=== PATIENT | male | born 1985 | race Caucasian/White ===

== ENCOUNTER → 2016-08-03 | Outpatient (CLI) | payer MEDICARE, OTHER ==
[~2016-08-03] MED LIST: ESLI1TAB2 PO; OMEP20TA PO; ONFI20TA PO; OXCA300T PO; PRIL20CA PO; ZYPR2.5T2 PO; ZYPR5TAB PO; [UNRECOGNIZED DRUG - CODE] PO
[2016-08-03 16:45] LABS: HEMATOCRIT 36.5 % (39.0-51.0); MEAN CELL VOLUME 89.9 FL (80.0-100.0); MEAN CORPUSCULAR HEMOGLOBIN 31.6 PG (27.0-34.0); MEAN CORPUSCULAR HGB CONC 35.2 % (32.0-36.0); PLATELET COUNT 248 TH/MM3 (150-450); RED BLOOD COUNT 4.06 MIL/MM3 (4.50-5.90); RED CELL DISTRIBUTION WIDTH 13.1 % (11.6-17.2); REVIEW FLAG FINAL; WHITE BLOOD COUNT 8.5 TH/MM3 (4.0-11.0)
[2016-08-03 16:54] LABS: INDIRECT BILIRUBIN 0.1 MG/DL (0.0-0.8); TOTAL BILIRUBIN ADULT 0.2 MG/DL (0.2-1.0)
== END ==
LOC: PLAB 13:31
PROVIDERS: ATTEND Specialist
DX: Z51.81 Encounter for therapeutic drug level monitoring (principal); R93.3 Abnormal findings on diagnostic imaging of other parts of digestive tract; R94.5 Abnormal results of liver function studies; Z79.899 Other long term (current) drug therapy
CPT/HCPCS: 36415; 80076; 80183; 85027

== ENCOUNTER 2016-12-20 21:32 | Inpatient (IN) | payer MEDICARE, OTHER ==
[~2016-12-20] VITALS: Ht 172.7 cm; Wt 67.7 kg
[~2016-12-20 21:32] MED LIST changes: -OMEP20TA PO; -ONFI20TA PO; -OXCA300T PO; -ZYPR2.5T2 PO
[2016-12-20 21:33] VITALS: BP 141/86; PULSE 134; RESP 20; TEMP 97.6; O2SAT 99
[2016-12-20 21:42] VITALS: TEMP 102.3
[2016-12-20 22:05] VITALS: TEMP 102.2
[2016-12-20] MEDS ORDERED: SODIUM CHLOR 0.9% 1000 ML INJ 1,000 ML IV ONE (22:11)
[2016-12-20] MEDS ORDERED: ACETAMINOPHEN 650 MG SUPP RECTAL ONE (22:15)
--- NOTE | 2016-12-20 22:22 | PD ---
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 The event occurred about 40 minutes prior to arrival and consisted of generalized shaking and the patient not acting like himself. Upon arrival to the emergency department the patient was notably febrile with a rectal temp of 102F. Mom states that the patient had similar presentation several years ago when he needed a BALLPOINT PENS ASSEMBLER shunt revision. He also had a similar presentation a couple years ago when he aspirated. They have not noticed a rash. He has not had a cough. No vomiting or diarrhea. Patient is nonverbal at baseline and is unable to provide any history. PFSH Past Medical History Hx Anticoagulant Therapy: No Autoimmune Disease: No Blood Disorders: No Heart Rhythm Problems: No Cancer: No Cardiovascular Problems: No Chemotherapy: No Diabetes: No Diminished Hearing: No Endocrine: No Gastrointestinal Disorders: Yes (reflux hx of esophageal bleeding) GERD: Yes Glaucoma: No Genitourinary: Yes (hx of small kidney stone incontinent of urine) Hepatitis: No Hiatal Hernia: No Hypertension: No Immune Disorder: No Musculoskeletal: Yes (wheelchair bound non weight bearing) Neurologic: Yes (seizures hx of vp patient shunt) Psychiatric: Yes (pt is mentally challenged) Reproductive: No Respiratory: No Immunizations Current: Yes Radiation Therapy: No Seizures: Yes Thyroid Disease: No PNEUMOCCOCAL Vaccine (Year): 2009 Past Surgical History Abdominal Surgery: No Body Medical Devices: vagal nerve stimulator vp patient shunt Cardiac Surgery: No Ear Surgery: No Endocrine Surgery: No Eye Surgery: No Genitourinary Surgery: No Gynecologic Surgery: No Neurologic Surgery: Yes (vp patient shunt ) Oral Surgery: No Pacemaker: No Thoracic Surgery: No Other Surgery: Yes (VAGAL NERVE STIMULATOR) Social History Alcohol Use: No Tobacco Use: No Substance Use: No Allergies-Medications (Allergen,Severity, Reaction): Coded Allergies: Cashew (Verified Allergy, Severe, SWELLING, 01/28/16) Keflex (Verified Allergy, Unknown, 12/20/16) Uncoded Allergies: LIVE OAK (Allergy, Severe, hives rash, 12/13/13) MOLD (Allergy, Mild, conjestion, 12/13/13) Reported Meds & Prescriptions Reported Meds & Active Scripts Active Reported Zyprexa (Olanzapine) 2.5 Mg Tab 2.5 Mg PO BID PRN Onfi (Clobazam) 20 Mg Tab 20 Mg PO TID Omeprazole 20 Mg Tab 20 Mg PO DAILY Oxcarbazepine 300 Mg Tab 300 Mg PO TID Review of Systems ROS Limitations: Other: (Baseline mental status) Physical Exam Narrative GENERAL: Well-developed, well-nourished, awake, alert SKIN: Focused skin assessment warm/dry. No rash. HEAD: Several scalp depressions and old surgical scars. Right parietal scalp BALLPOINT PENS ASSEMBLER shunt with port depressible. EYES: Pupils equal and round. No scleral icterus. No injection or drainage. ENT: Mucous membranes pink and dry. NECK: Trachea midline. No JVD. No nuchal rigidity. CARDIOVASCULAR: Regular rate and rhythm. RESPIRATORY: No accessory muscle use. Clear to auscultation. Breath sounds equal bilaterally. GASTROINTESTINAL: Abdomen soft, non-tender, nondistended. MUSCULOSKELETAL: Upper and lower extremity contractures. No clubbing. No cyanosis. No edema. NEUROLOGICAL: Awake and alert. No obvious cranial nerve deficits. Moves all extremities. Data Data Last Documented VS Vital Signs Date Time Temp Pulse Resp B/P Pulse Ox O2 Delivery O2 Flow Rate FiO2 12/21/16 00:26 106 18 132/82 97 Room Air 12/20/16 21:42 102.3 Orders Complete Blood Count With Diff (12/20/16 22:11) Comprehensive Metabolic Panel (12/20/16 22:11) Prothrombin Time / Inr (Pt) (12/20/16 22:11) Act Partial Throm Time (Ptt) (12/20/16 22:11) Lactic Acid Sepsis Protocol (12/20/16 22:11) Urinalysis - C+S If Indicated (12/20/16 22:11) Blood Culture (12/20/16 22:11) Ecg Monitoring (12/20/16 22:11) Iv Access Insert/Monitor (12/20/16 22:11) Cath For Specimen (12/20/16 22:11) Oximetry (12/20/16 22:11) Acetaminophen Supp (Tylenol Supp) (12/20/16 22:15) Sodium Chlor 0.9% 1000 Ml Inj (Ns 1000 M (12/20/16 22:11) Influenzae A/B Antigen (12/20/16 22:11) Group A Rapid Strep Screen (12/20/16 22:11) Shunt Series (12/20/16 ) Ct Brain W/O Iv Contrast(Rout) (12/20/16 ) Levofloxacin 500 Mg Premix Inj (Levaquin (12/21/16 00:15) Sodium Chlor 0.9% 1000 Ml Inj (Ns 1000 M (12/21/16 00:15) Fluconazole (Diflucan) (12/21/16 00:30) Strep Culture (Group A) (12/20/16 23:40) Labs Laboratory Tests Test 12/20/16 12/20/16 12/21/16 22:35 23:40 00:04 White Blood Count 12.3 TH/MM3 Red Blood Count 4.30 MIL/MM3 Hemoglobin 13.8 GM/DL Hematocrit 38.8 % Mean Corpuscular Volume 90.3 FL Mean Corpuscular Hemoglobin 32.0 PG Mean Corpuscular Hemoglobin 35.5 % Concent Red Cell Distribution Width 13.1 % Platelet Count 217 TH/MM3 Mean Platelet Volume 7.4 FL Neutrophils (%) (Auto) 89.0 % Lymphocytes (%) (Auto) 4.7 % Monocytes (%) (Auto) 5.8 % Eosinophils (%) (Auto) 0.2 % Basophils (%) (Auto) 0.3 % Neutrophils # (Auto) 11.0 TH/MM3 Lymphocytes # (Auto) 0.6 TH/MM3 Monocytes # (Auto) 0.7 TH/MM3 Eosinophils # (Auto) 0.0 TH/MM3 Basophils # (Auto) 0.0 TH/MM3 CBC Comment AUTO DIFF Differential Total Cells 100 Counted Neutrophils % (Manual) 74 % Band Neutrophils % 14 % Lymphocytes % 10 % Monocytes % 2 % Neutrophils # (Manual) 10.8 TH/MM3 Differential Comment FINAL DIFF MANUAL Atypical Lymphocytes % Platelet Estimate NORMAL Platelet Morphology Comment NORMAL Red Cell Morphology Comment NORMAL Sodium Level 127 MEQ/L Potassium Level 4.3 MEQ/L Chloride Level 92 MEQ/L Carbon Dioxide Level 31.6 MEQ/L Anion Gap 3 MEQ/L Blood Urea Nitrogen 8 MG/DL Creatinine 0.75 MG/DL Estimat Glomerular Filtration 120 ML/MIN Rate Random Glucose 112 MG/DL Calcium Level 8.9 MG/DL Total Bilirubin 0.3 MG/DL Aspartate Amino Transf 29 U/L (AST/SGOT) Alanine Aminotransferase 50 U/L (ALT/SGPT) Alkaline Phosphatase 97 U/L Total Protein 7.7 GM/DL Albumin 4.1 GM/DL Lactic Acid Level 2.8 mmol/L Urine Color YELLOW Urine Turbidity HAZY Urine pH 8.0 Urine Specific [place] 1.011 Urine Protein NEG mg/dL Urine Glucose (UA) NEG mg/dL Urine Ketones NEG mg/dL Urine Occult Blood NEG Urine Nitrite NEG Urine Bilirubin NEG Urine Urobilinogen LESS THAN 2.0 MG/DL Urine Leukocyte Esterase NEG Urine RBC 1 /hpf Urine WBC 2 /hpf Urine Mucus FEW /lpf Urine Yeast (Budding) MANY Microscopic Urinalysis Comment CULT NOT INDICATED Prothrombin Time 11.5 SEC Prothromb Time International 1.0 RATIO Ratio Activated Partial 28.5 SEC Thromboplast Time MDM Medical Decision Making Medical Screen Exam Complete: Yes Emergency Medical Condition: Yes Differential Diagnosis Sepsis, pneumonia, UTI, meningitis/encephalitis less likely, viral illness, URI, Narrative Course While at x-ray the patient had a brief generalized seizure. Initial vital signs show heart rate 134, temporal artery temp of 102.3F, blood pressure 141/86, pulse ox 99% on room air. CBC shows WBC 12.3, hemoglobin 13.8, hematocrit 38.8, platelets 217, neutrophils 89%, then neutrophils 14%. CMP is unremarkable. Lactic acid is 2.8. Influenza is negative. Group A strep is negative. UA shows few mucus, many yeast, negative nitrites, negative leukocyte esterase, not suggestive of UTI. The patient was given a dose of Diflucan. Shunt series: Intact shunt on the right side. CT head: CONCLUSION: Air-fluid level right maxillary sinus could represent sinusitis. Pachygyri frontal lobes bilaterally. No evidence of intracranial hemorrhage or edema. Ventricles remain nondilated. Patient meets sepsis criteria with elevated WBC count, sinus tachycardia, fever 102.4F. He was given Tylenol and normal saline bolus IV. Likely source is sinusitis. He is allergic to Keflex and possibly penicillin, therefore he was given a dose of IV Levaquin. He has had 2 brief seizures/seizure-like activity while in the emergency department, both of which resolved on their own. Patient does have history of seizures and is on Onfi and Trileptal. Seizure threshold is likely lowered because of current infection. Patient be admitted for further treatment and evaluation of sepsis, sinusitis. Parents informed of all findings and a plan for admission. Case discussed with hospitalist Dr. Hemphill who will admit the patient to his service. Diagnosis Primary Impression: Sepsis Qualified Code: A41.9 - Sepsis, due to unspecified organism Additional Impression: Sinusitis Qualified Code: J01.00 - Acute maxillary sinusitis, recurrence not specified Admitting Information Admitting Physician Requests: Admit Wolfgang Espitia MD Dec 20, 2016 22:22
[2016-12-20 22:55] LABS: BASOPHIL % 0.3 % (0.0-2.0); EOSINOPHIL % 0.2 % (0.0-4.0); HEMATOCRIT 38.8 % (39.0-51.0); LYMPH % 4.7 % (9.0-44.0); LYMPHOCYTE # 0.6 TH/MM3 (1.0-4.8); MEAN CELL VOLUME 90.3 FL (80.0-100.0); MEAN CORPUSCULAR HGB CONC 35.5 % (32.0-36.0); MONO % 5.8 % (0.0-8.0); PLATELET COUNT 217 TH/MM3 (150-450); RED CELL DISTRIBUTION WIDTH 13.1 % (11.6-17.2); WHITE BLOOD COUNT 12.3 TH/MM3 (4.0-11.0)
[2016-12-20 22:56] LABS: HEMO FLAGS AUTO DIFF
[2016-12-20] MEDS ORDERED: ZYPR2.5T2 PO (22:59)
[2016-12-20] MEDS ORDERED: OXCA300T PO (22:59)
[2016-12-20] MEDS ORDERED: OMEP20TA PO (22:59)
[2016-12-20] MEDS ORDERED: ONFI20TA PO (22:59)
[2016-12-20 23:09] LABS: ALT (GPT) 50 U/L (12-78); ANION GAP 3 MEQ/L (5-15); AST (GOT) 29 U/L (15-37); BICARBONATE 31.6 MEQ/L (21.0-32.0); BLOOD UREA NITROGEN 8 MG/DL (7-18); CHLORIDE 92 MEQ/L (98-107); GLOMERULAR FILTRATION RATE 120 ML/MIN (>89); POTASSIUM 4.3 MEQ/L (3.5-5.1); SODIUM (NA) 127 MEQ/L (136-145)
[2016-12-20 23:11] LABS: ALKALINE PHOSPHATASE 97 U/L (45-117); TOTAL BILIRUBIN ADULT 0.3 MG/DL (0.2-1.0)
[2016-12-20 23:21] LABS: BANDS 14 % (0-6); NEUTROPHIL # MANUAL DIFF 10.8 TH/MM3 (1.8-7.7); POLYS (SEG NEUTROPHILS) 74 % (16-70); WBC DIFF SAMPLE 100
[2016-12-20 23:22] LABS: PLATELET ESTIMATE SMEAR NORMAL (NORMAL); PLATELET MORPHOLOGY NORMAL (NORMAL); SCAN/DIFF FINAL DIFF MANUAL
--- NOTE | 2016-12-20 23:24 | RADRPT ---
EXAM DATE/TIME: 12/20/2016 22:49 [facility] COMPARISON: No previous studies available for comparison. INDICATIONS : Headache. MEDICAL HISTORY : Renal calculi. non-verbal SURGICAL HISTORY : None. ENCOUNTER: Initial ACUITY: 1 day PAIN SCORE: Non-responsive. LOCATION: shunt series. FINDINGS: Radiograph of the skull, neck, chest and abdomen performed to evaluate shunt patency. The right shun t catheter is seen entering the right frontal region with its tip in the region of the body of the la teral ventricle. The catheter is continuous in its course terminating in the abdomen. No catheter disruption is ident ified. The visualized heart, lungs and abdominal structures are intact. There is an older left shunt with an interruption in the mid neck CONCLUSION: Intact shunt on the right side. Gonzalez Tao MD on December 20, 2016 at 23:20 Board Certified Radiologist. This report was verified electronically.
--- NOTE | 2016-12-20 23:52 | RADRPT ---
EXAM DATE/TIME: 12/20/2016 23:03 [facility] COMPARISON: CT BRAIN W/O CONTRAST, July 11, 2015, 16:05. INDICATIONS : Altered mental status. RADIATION DOSE: 46.29 CTDIvol (mGy) MEDICAL HISTORY : Gastroesophageal reflux disease. Seizures. Renal calculi.Osteochondroma. Liscencephaly. SURGICAL HISTORY : HAND OUTSIDE CUTTER Shunt. ENCOUNTER: Initial ACUITY: 1 day PAIN SCALE: 10/10 LOCATION: Bilateral cranial TECHNIQUE: Multiple contiguous axial images were obtained of the head. Using automated exposure control and adj ustment of the mA and/or kV according to patient size, radiation dose was kept as low as reasonably a chievable to obtain optimal diagnostic quality images. 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 No evidence of midline shift, mass lesion, hemor rhage or acute infarction. No extra-axial fluid collections are seen. Right frontal catheter is unch anged. POSTERIOR FOSSA: The cerebellum and brainstem are intact. The 4th ventricle is midline. The cerebellopontine angle i s unremarkable. EXTRACRANIAL: The visualized portion of the orbits is intact. Air-fluid level right maxillary sinus. SKULL: The calvaria is intact. Bony defect in the left frontal region. CONCLUSION: Air-fluid level right maxillary sinus could represent sinusitis. Pachygyri frontal lobes bilaterally . No evidence of intracranial hemorrhage or edema. Ventricles remain nondilated. Gonzalez Tao MD on December 20, 2016 at 23:48 Board Certified Radiologist. This report was verified electronically.
[2016-12-21] VITALS (7 sets, daily range): BP systolic 91–132; BP diastolic 50–82; PULSE 73–106; RESP 16–20; TEMP 97.6–98.5; O2SAT 96–99
[2016-12-21 00:13] LABS: BLOOD, URINE NEG (NEG); GLUCOSE,URINE NEG (NEG); KETONE, URINE NEG (NEG); MUCUS URINE FEW /lpf (OCC); NITRITE,URINE NEG (NEG); URINE COLOR YELLOW (YELLW/STRAW)
[2016-12-21 00:14] LABS: COMMENT (UR) CULT NOT INDICATED; CULTURE IF INDICATED CULT NOT INDICATED
[2016-12-21] MEDS ORDERED: LEVOFLOXACIN 500 MG PREMIX INJ 100 ML IV ONE (00:15)
[2016-12-21] MEDS ORDERED: SODIUM CHLOR 0.9% 1000 ML INJ 1,000 ML IV ONE (00:15)
[2016-12-21 00:26] LABS: APTT (PATIENT) 28.5 SEC (24.3-30.1); PROTHROMBIN TIME - PATIENT 11.5 SEC (9.8-11.6)
[2016-12-21] MEDS ORDERED: FLUCONAZOLE 100 MG TAB PO ONE (00:30)
[2016-12-21 00:44] LABS: LACTIC ACID GHOST NOT REPORTABLE
[2016-12-21] MEDS ORDERED: ONDANSETRON HCL 4 MG/2 ML VIAL IVP PRN (02:45)
[2016-12-21] MEDS ORDERED: NALOXONE HCL 0.4 MG/ML AMP IV PRN (02:45)
[2016-12-21] MEDS ORDERED: ACETAMINOPHEN 325 MG TAB PO PRN (02:45)
[2016-12-21] MEDS ORDERED: MAGNESIUM HYDROXIDE SUSP 30 ML CUP PO PRN (02:45)
[2016-12-21] MEDS: HEPARIN SODIUM - SQ 10,000 UNITS/ML VIAL SQ SCH ×3 (05:06→20:54)
[2016-12-21] MEDS: DOCUSATE SODIUM 50 MG/SENNA 8.6 MG TAB PO SCH ×2 (09:41→20:54)
--- NOTE | 2016-12-21 10:56 | HHI.HP ---
[facility] Nahum Berrios MD Admission Diagnosis sepsis, sinusitis Diagnoses: Travel History International Travel<30 Days: No Contact w/Intl Traveler <30 Da: No Traveled to Known Affected Are: No Sepsis Criteria SIRS Criteria (2 or more): Temp > 100.9 or < 96.8, Heart rate over 90, WBC > 55214, < 4000 or > 10% bands Sepsis Criteria (SIRS+source): Infect source susp/known History of Present Illness 31 year old male w PMHx of epilepsy, DRIVING TEACHER shunt placement, GERD, nephrolithiasis, presented to the ER last night w family because of seizure like activity. Patient is nonverbal and therefore mother and father give history. Mother states that around 8:30 last night, patient started shaking and she thought he had a seizure. He had a second episode where the whole wheelchair was shaking and patient's eyes were moving [id number]. Afterwards, patient became lethargic. Mother denies any fevers at home. Prior to 8:30 patient was acting his normal self. Patient's appetite has been the same with no changes. Per mother, patient was not complaining of any pain and she states that he has a high tolerance for pain. Her mother thought that maybe he had aspirated because he had some labored breathing during the episodes where he was shaking. She denies him choking on his food. She admits to some clear drainage in his nostrils yesterday 1 episode. She did also note bad breath yesterday which is new for him as she does clean his teeth regularly. Other denies any fevers at home. Mother was concerned about the shunt. Denies any cough Review of Systems ROS Limitations: Clinical Condition, Speech Impaired, Other Except as stated in HPI: all other systems reviewed are Neg Past Family Social History Past Medical History epilepsy, DRIVING TEACHER shunt placement, GERD, nephrolithiasis Past Surgical History DRIVING TEACHER shunt placed at 5 months of age. It disintegrated around age 19 and had a new one placed. Patient did have a history of shunt infection in the past. Osteochondroma removal on the right leg, esophageal dilatation, hamstring release bilaterally, vagal nerve stimulator on the left side. Reported Medications Reported Meds & Active Scripts Active Reported Zyprexa (Olanzapine) 2.5 Mg Tab 2.5 Mg PO BID PRN Onfi (Clobazam) 20 Mg Tab 20 Mg PO TID Omeprazole 20 Mg Tab 20 Mg PO DAILY Oxcarbazepine 300 Mg Tab 300 Mg PO TID Allergies: Coded Allergies: Cashew (Verified Allergy, Severe, SWELLING, 01/28/16) Keflex (Verified Allergy, Unknown, 12/20/16) Uncoded Allergies: LIVE OAK (Allergy, Severe, hives rash, 12/13/13) MOLD (Allergy, Mild, conjestion, 12/13/13) Family History Mother has high blood pressure Father has high blood pressure, heart disease, diabetes Brother's grandson of brain cancer age 9 Social History And no smoking history, alcohol intake, or illegal drug use. Physical Exam Vital Signs Vital Signs Date Time Temp Pulse Resp B/P Pulse Ox O2 Delivery O2 Flow Rate FiO2 12/21/16 08:00 97.7 76 20 91/50 97 12/21/16 04:38 94 12/21/16 04:00 98.3 92 16 96/62 96 12/21/16 00:26 106 18 132/82 97 Room Air 12/20/16 22:05 102.2 12/20/16 21:42 102.3 12/20/16 21:33 97.6 134 20 141/86 99 Room Air Physical Exam GENERAL: This is a well-nourished, well-developed patient, in no apparent distress. SKIN: No rashes, ecchymoses or lesions. Cool and dry. HEAD: Atraumatic. Normocephalic. EYES: Pupils equal round and reactive. Extraocular motions intact. No scleral icterus. No injection or drainage. ENT: Nose without drainage. Throat exams was somewhat limited due to patient's condition however mother did help me with it and I did not note any erythema or enlarged tonsils or exudates. Airway patent. I did not seems to elicit and pain w palpation of the frontal and maxillary sinuses, Ears examined and wax noted but tympanic membrane pearly bills w no erythema, didn't note any fluid NECK: Trachea midline. No JVD or lymphadenopathy. Supple, nontender, no meningeal signs. CARDIOVASCULAR: Regular rate and rhythm without murmurs. RESPIRATORY: Clear to auscultation. Breath sounds equal bilaterally. No wheezes GASTROINTESTINAL: Abdomen soft, non-tender, nondistended. No palpable masses. No guarding. MUSCULOSKELETAL: Extremities without edema. Contractures noted in the upper extremities. Minimal movement in the lower extremities noted. Pedal pulses palpated NEUROLOGICAL: Awake and alert. Nonverbal Laboratory Laboratory Tests Test 12/20/16 12/20/16 12/21/16 12/21/16 22:35 23:40 00:04 01:20 White Blood Count 12.3 Red Blood Count 4.30 Hemoglobin 13.8 Hematocrit 38.8 Mean Corpuscular Volume 90.3 Mean Corpuscular Hemoglobin 32.0 Mean Corpuscular Hemoglobin 35.5 Concent Red Cell Distribution Width 13.1 Platelet Count 217 Mean Platelet Volume 7.4 Neutrophils (%) (Auto) 89.0 Lymphocytes (%) (Auto) 4.7 Monocytes (%) (Auto) 5.8 Eosinophils (%) (Auto) 0.2 Basophils (%) (Auto) 0.3 Neutrophils # (Auto) 11.0 Lymphocytes # (Auto) 0.6 Monocytes # (Auto) 0.7 Eosinophils # (Auto) 0.0 Basophils # (Auto) 0.0 CBC Comment AUTO DIFF Differential Total Cells 100 Counted Neutrophils % (Manual) 74 Band Neutrophils % 14 Lymphocytes % 10 Monocytes % 2 Neutrophils # (Manual) 10.8 Differential Comment FINAL DIFF MANUAL Atypical Lymphocytes Platelet Estimate NORMAL Platelet Morphology Comment NORMAL Red Cell Morphology Comment NORMAL Sodium Level 127 Potassium Level 4.3 Chloride Level 92 Carbon Dioxide Level 31.6 Anion Gap 3 Blood Urea Nitrogen 8 Creatinine 0.75 Estimat Glomerular Filtration 120 Rate Random Glucose 112 Calcium Level 8.9 Total Bilirubin 0.3 Aspartate Amino Transf 29 (AST/SGOT) Alanine Aminotransferase 50 (ALT/SGPT) Alkaline Phosphatase 97 Total Protein 7.7 Albumin 4.1 Lactic Acid Level 2.8 1.6 Urine Color YELLOW Urine Turbidity HAZY Urine pH 8.0 Urine Specific [place] 1.011 Urine Protein NEG Urine Glucose (UA) NEG Urine Ketones NEG Urine Occult Blood NEG Urine Nitrite NEG Urine Bilirubin NEG Urine Urobilinogen LESS THAN 2.0 Urine Leukocyte Esterase NEG Urine RBC 1 Urine WBC 2 Urine Mucus FEW Urine Yeast (Budding) MANY Microscopic Urinalysis Comment CULT NOT INDICATED Prothrombin Time 11.5 Prothromb Time International 1.0 Ratio Activated Partial 28.5 Thromboplast Time Date/Time Procedure Status Source Growth 12/20/16 23:40 Influenza Types A,B Antigen ([facility]) - Final Complete Nasal Washing NEGATIVE FOR FLU A AND B ANTIGEN.... 12/20/16 23:40 Group A Streptococcus Screen ([facility]) - Final Complete Throat 12/20/16 23:40 Group A Streptococcus Screen Received Throat Pending 12/20/16 22:35 Aerobic Blood Culture Received Blood Peripheral Pending 12/20/16 22:35 Anaerobic Blood Culture Received Blood Peripheral Pending Result Diagram: 12/20/16223412/20/162234 Imaging Last Impressions Shunt Study (Imaging) 12/20/16 0000 Signed Impressions: Service Date/Time: Tuesday, December 20, 2016 22:49 - CONCLUSION: Intact shunt on the right side. Gonzalez Tao MD Head CT 12/20/16 0000 Signed Impressions: Service Date/Time: Tuesday, December 20, 2016 23:03 - CONCLUSION: Air-fluid level right maxillary sinus could represent sinusitis. Pachygyri frontal lobes bilaterally. No evidence of intracranial hemorrhage or edema. Ventricles remain nondilated. Gonzalez Tao MD Assessment and Plan Assessment and Plan Pt at least meets sepsis criteria and at this time, only source of infection suspected to be sinusitis noted on CT scan. Blood cx pending thus far. Strep throat screening is negative. Influenza negative. CT head concerning for right sided sinusitis. Patient received a dose of Levaquin in the ER. We'll continue Levaquin IV 500 mg daily. Infectious disease have been consulted. Appreciate recommendations. Shunt imaging was normal. Patient not presenting without any meningeal signs at this time although it's difficult to obtain history from patient himself. No coughing per mother. UA reviewed, showed some yeast however no UTI noted. We'll check a chest x-ray to complete workup. MAXIMUM TEMPERATURE was 102 in the ER. Seizure: Patient had 2 episodes at home and apparently also noted in the ER. His neurologist is Dr. Hunter. We'll continue his medications at this time. Patient is seizure free at this time. Check EEG contractures: place padding to protect elbows, PT to evaluate pt leukocytosis: mild at 12.3 w 14 bands. pt on IV abx. Repeat in AM. hyponatremia; 127 on admission. Monitor closely. urine osm, serum osm, urine Cr and Na. gentle hydration w NS @ 75ml/hr. Monitor BMP q 6hrs U/A w budding yeast but no UTI: s/p one dose of diflucan. DVT proph: heparin Code Status Full code Discussed Condition With Patient, Father and mother Natividad Castelan MD Dec 21, 2016 10:56
[2016-12-21] MEDS ORDERED: OLANZapine 2.5 MG TAB PO PRN (11:15)
[2016-12-21] MEDS: SODIUM CHLOR 0.9% 1000 ML INJ 1,000 ML IV SCH (12:08)
[2016-12-21] MEDS ORDERED: CLOBAZAM 20 MG PO SCH (13:00)
[2016-12-21] MEDS ORDERED: [UNRECOGNIZED DRUG - OTHER] PO SCH (13:00)
[2016-12-21] MEDS: OXcarbazepine 300 MG TAB PO SCH ×2 (13:23→17:09)
[2016-12-21 13:48] LABS: BICARBONATE 28.4 MEQ/L (21.0-32.0); POTASSIUM 4.1 MEQ/L (3.5-5.1)
--- NOTE | 2016-12-21 16:51 | PD.CONS ---
History of Present Illness Service Neurology Consult Requested By medical Reason for Consult sz Primary Care Physician Nahum Berrios MD History of Present Illness 31-year-old male with a history of mental and physical disabilities and seizures who presents for fever,sz's. He has fever, cough, congestion. has had a couple of convulsions associated with fever spikes per mother. he does occasoinally moan wheelchair bound at baseline. frequency: he averages 1-2 sz's per week they see my partner and an epileptologist at [facility]. he has refractory epilepsy. has been on most sz meds. has a vns in place. Review of Systems ROS Limitations: Past Family Social History Past Medical History mental and physical disability Seizure disorder Past Surgical History CONTACT PRINTER DRY FILM shunt Allergies: Coded Allergies: Cashew (Verified Allergy, Severe, SWELLING, 07/11/15) Uncoded Allergies: LIVE OAK (Allergy, Severe, hives rash, 12/13/13) MOLD (Allergy, Mild, conjestion, 12/13/13) Family History noncontributory Social History lives with parents Review of Systems All other ROS: ROS reviewed as documented in chart Past Family Social History Allergies: Coded Allergies: Cashew (Verified Allergy, Severe, SWELLING, 07/11/15) Uncoded Allergies: LIVE OAK (Allergy, Severe, hives rash, 12/13/13) MOLD (Allergy, Mild, conjestion, 12/13/13) Review of Systems All other ROS: ROS reviewed as documented in chart Past Family Social History Allergies: Coded Allergies: Cashew (Verified Allergy, Severe, SWELLING, 01/28/16) Keflex (Verified Allergy, Unknown, 12/20/16) Uncoded Allergies: LIVE OAK (Allergy, Severe, hives rash, 12/13/13) MOLD (Allergy, Mild, conjestion, 12/13/13) Active Ordered Medications Current Medications Medications (Trade) Dose Ordered Sig/Yvan Route Start Time Stop Time Status Last Admin (Tylenol) 650 mg Q4H PRN PO 12/21/16 02:45 (Zofran Inj) 4 mg Q6H PRN IVP 12/21/16 02:45 (Heparin Inj) 5,000 units Q8H SQ 12/21/16 06:00 12/21/16 13:22 (Narcan Inj) 0.4 mg UNSCH PRN IV 12/21/16 02:45 ([place]-Colace) 1 tab BID PO 12/21/16 09:00 12/21/16 09:41 Magnesium Hydroxide 30 ml 30 ml Q12H PRN PO 12/21/16 02:45 (Levaquin 500 Mg Premix Inj) 100 ml @ 100 mls/hr Q24H IV 12/22/16 00:00 (ZyPREXA) 2.5 mg BID PRN PO 12/21/16 11:15 (Trileptal) 300 mg TID PO 12/21/16 13:00 12/21/16 13:23 Patient Own Medication 20 ea TID PO 12/21/16 13:00 Hold Pantoprazole Sodium 20 mg 20 mg DAILY PO 12/22/16 09:00 (NS 1000 ml Inj) 1,000 ml @ 75 mls/hr [id number] IV 12/21/16 11:15 12/21/16 12:08 Exam I&O / VS Vital Signs Date Time Temp Pulse Resp B/P Pulse Ox O2 Delivery O2 Flow Rate FiO2 12/21/16 16:00 98.0 73 20 112/65 97 12/21/16 12:00 97.6 83 20 91/62 97 12/21/16 08:00 97.7 76 20 91/50 97 12/21/16 04:38 94 12/21/16 04:00 98.3 92 16 96/62 96 12/21/16 00:26 106 18 132/82 97 Room Air 12/20/16 22:05 102.2 12/20/16 21:42 102.3 12/20/16 21:33 97.6 134 20 141/86 99 Room Air Respiratory: Non-labored respirations Cardiology: Normal rate Neurologic: Alert Exam Comments does not follow. in nad. eomi, looks around, smiled when his mother spoke to him , face sym. ou 3-2mm, ue in flexed position with contraction at wrist, with increased tone as is neal le. brisk msr; no sz activity noted Review/Management Diagnosis/Plan: (1) Intractable seizures Plan: pt appears alert however mother does not feel he is at his baseline he is bedbound at baseline breakthrough 2/2 fevers/sinusitis sodium low- possibly 2/2 trileptal- on ns recs resume onfi- parents can bring to hospital if needed neuro stable d/c planning once cleared by medical/i.d. iv ativan prn f/u with Dr. Hunter (2) Sinusitis Plan: i.d consulted (3) S/P CONTACT PRINTER DRY FILM shunt (4) Chronic static encephalopathy Problem Qualifiers (1) Sinusitis: Qualified Code: J01.00 - Acute maxillary sinusitis, recurrence not specified Jurgen Caruso MD Dec 21, 2016 16:51
--- NOTE | 2016-12-21 16:55 | MG ---
cc: STUART CARMONA M.D. Lab No: [id number] Date: 12/21/2016 Age: Sex: M Race: TECHNIQUE 17 channel EEG. DESCRIPTION The background rhythm reveals initially symmetrical alpha rhythm frequency of 8-9 Hz amplitude is 20-30 microvolts. There is fairly prominent muscle artifact as well as eye movement artifact in the tracing. Hyperventilation could not be performed. Photic stimulation was performed in a stepwise fashion but was limited because the patient had blinking his eyes and therefore there is no definite driving response noted. Sharp activity is identified occasion in the left hemisphere with some degree of phase reversal. INTERPRETATION Abnormal study. There is evidence of sharp activity with phase reversal left parietal area suggesting a seizure focus in that area. MD ARLEN Sidhu/stephen /3:40 PM /4:32 PM
--- NOTE | 2016-12-21 18:39 | PD.ID.CON ---
History of Present Illness Service ID Consult Requested By Reason for Consult Evaluation and Mment of possible APPLICATION ADMINISTRATOR shunt infection. Primary Care Physician Nahum Berrios MD Diagnoses: History of Present Illness Mr. 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 Hunter), APPLICATION ADMINISTRATOR shunt placement, GERD, nephrolithiasis. With this background patient presents to the emergency room w family because of seizure like activity. Patient is nonverbal and therefore mother and father give history. Mother states that around 8:30 last night, patient started shaking and she thought he had a seizure. He had a second episode where the whole wheelchair was shaking and patient's eyes were moving [id number]. Afterwards, patient became lethargic. Mother denies any fevers at home. Prior to 8:30 patient was acting his normal self. Patient's appetite has been the same with no changes. She admits to some clear drainage in his nostrils yesterday 1 episode. She did also note bad breath yesterday which is new for him as she does clean his teeth regularly. Other denies any fevers at home. Mother was concerned about the shunt. Denies any cough Prior history of APPLICATION ADMINISTRATOR shunt infections treated with antibiotics in the past. Infectious disease is consulted for evaluation and management of possible APPLICATION ADMINISTRATOR shunt-related infection. Review of Systems ROS Limitations: Clinical Condition, Altered Mental Status Past Family Social History Allergies: Coded Allergies: Cashew (Verified Allergy, Severe, SWELLING, 01/28/16) Keflex (Verified Allergy, Unknown, 12/20/16) Uncoded Allergies: LIVE OAK (Allergy, Severe, hives rash, 12/13/13) MOLD (Allergy, Mild, conjestion, 12/13/13) Past Medical History epilepsy, APPLICATION ADMINISTRATOR shunt placement, GERD, nephrolithiasis Past Surgical History APPLICATION ADMINISTRATOR shunt placed at 5 months of age. It disintegrated around age 19 and had a new one placed. Patient did have a history of shunt infection in the past. Osteochondroma removal on the right leg, esophageal dilatation, hamstring release bilaterally, vagal nerve stimulator on the left side. Reported Medications Reported Meds & Active Scripts Active Reported Zyprexa (Olanzapine) 2.5 Mg Tab 2.5 Mg PO BID PRN Onfi (Clobazam) 20 Mg Tab 20 Mg PO TID Omeprazole 20 Mg Tab 20 Mg PO DAILY Oxcarbazepine 300 Mg Tab 300 Mg PO TID Active Ordered Medications Current Medications Medications (Trade) Dose Ordered Sig/Yvan Route Start Time Stop Time Status Last Admin (Tylenol) 650 mg Q4H PRN PO 12/21/16 02:45 (Zofran Inj) 4 mg Q6H PRN IVP 12/21/16 02:45 (Heparin Inj) 5,000 units Q8H SQ 12/21/16 06:00 12/21/16 13:22 (Narcan Inj) 0.4 mg UNSCH PRN IV 12/21/16 02:45 ([place]-Colace) 1 tab BID PO 12/21/16 09:00 12/21/16 09:41 Magnesium Hydroxide 30 ml 30 ml Q12H PRN PO 12/21/16 02:45 (Levaquin 500 Mg Premix Inj) 100 ml @ 100 mls/hr Q24H IV 12/22/16 00:00 (ZyPREXA) 2.5 mg BID PRN PO 12/21/16 11:15 (Trileptal) 300 mg TID PO 12/21/16 13:00 12/21/16 17:09 Patient Own Medication 20 ea TID PO 12/21/16 13:00 Hold Pantoprazole Sodium 20 mg 20 mg DAILY PO 12/22/16 09:00 (NS 1000 ml Inj) 1,000 ml @ 75 mls/hr [id number] IV 12/21/16 11:15 12/21/16 12:08 Family History Mother has high blood pressure Father has high blood pressure, heart disease, diabetes Brother's grandson of brain cancer age 9 Social History no smoking history, alcohol intake, or illegal drug use. Physical Exam Vital Signs Vital Signs Date Time Temp Pulse Resp B/P Pulse Ox O2 Delivery O2 Flow Rate FiO2 12/21/16 16:00 98.0 73 20 112/65 97 12/21/16 12:00 97.6 83 20 91/62 97 12/21/16 08:00 97.7 76 20 91/50 97 12/21/16 04:38 94 12/21/16 04:00 98.3 92 16 96/62 96 12/21/16 00:26 106 18 132/82 97 Room Air 12/20/16 22:05 102.2 12/20/16 21:42 102.3 12/20/16 21:33 97.6 134 20 141/86 99 Room Air Physical Exam GENERAL: This is a well-nourished, well-developed patient, in no apparent distress. SKIN: No rashes, ecchymoses or lesions. Cool and dry. HEAD: Atraumatic. Normocephalic. No temporal or scalp tenderness. EYES: Pupils equal round and reactive. Extraocular motions intact. No scleral icterus. No injection or drainage. ENT: Nose without bleeding, purulent drainage or septal hematoma. Throat without erythema, tonsillar hypertrophy or exudate. Uvula midline. Airway patent. NECK: Trachea midline. Supple, nontender, no meningeal signs. CARDIOVASCULAR: Regular rate and rhythm without murmurs, gallops, or rubs. RESPIRATORY: Clear to auscultation. Breath sounds equal bilaterally. No wheezes , rales, or rhonchi. GASTROINTESTINAL: Abdomen soft, non-tender, nondistended. MUSCULOSKELETAL: Extremities without clubbing, cyanosis, or edema. No joint tenderness, effusion, or edema noted. No calf tenderness. Negative Homans sign bilaterally. NEUROLOGICAL: Awake and alert. He grunts but no verbalization for me. Psych cooperative other components difficult to assess IV line sites with no evidence of infection. Laboratory Laboratory Tests Test 12/20/16 12/20/16 12/21/16 12/21/16 22:35 23:40 00:04 01:20 White Blood Count 12.3 Red Blood Count 4.30 Hemoglobin 13.8 Hematocrit 38.8 Mean Corpuscular Volume 90.3 Mean Corpuscular Hemoglobin 32.0 Mean Corpuscular Hemoglobin 35.5 Concent Red Cell Distribution Width 13.1 Platelet Count 217 Mean Platelet Volume 7.4 Neutrophils (%) (Auto) 89.0 Lymphocytes (%) (Auto) 4.7 Monocytes (%) (Auto) 5.8 Eosinophils (%) (Auto) 0.2 Basophils (%) (Auto) 0.3 Neutrophils # (Auto) 11.0 Lymphocytes # (Auto) 0.6 Monocytes # (Auto) 0.7 Eosinophils # (Auto) 0.0 Basophils # (Auto) 0.0 CBC Comment AUTO DIFF Differential Total Cells 100 Counted Neutrophils % (Manual) 74 Band Neutrophils % 14 Lymphocytes % 10 Monocytes % 2 Neutrophils # (Manual) 10.8 Differential Comment FINAL DIFF MANUAL Atypical Lymphocytes Platelet Estimate NORMAL Platelet Morphology Comment NORMAL Red Cell Morphology Comment NORMAL Sodium Level 127 Potassium Level 4.3 Chloride Level 92 Carbon Dioxide Level 31.6 Anion Gap 3 Blood Urea Nitrogen 8 Creatinine 0.75 Estimat Glomerular Filtration 120 Rate Random Glucose 112 Calcium Level 8.9 Total Bilirubin 0.3 Aspartate Amino Transf 29 (AST/SGOT) Alanine Aminotransferase 50 (ALT/SGPT) Alkaline Phosphatase 97 Total Protein 7.7 Albumin 4.1 Lactic Acid Level 2.8 1.6 Urine Color YELLOW Urine Turbidity HAZY Urine pH 8.0 Urine Specific Switzer 1.011 Urine Protein NEG Urine Glucose (UA) NEG Urine Ketones NEG Urine Occult Blood NEG Urine Nitrite NEG Urine Bilirubin NEG Urine Urobilinogen LESS THAN 2.0 Urine Leukocyte Esterase NEG Urine RBC 1 Urine WBC 2 Urine Mucus FEW Urine Yeast (Budding) MANY Microscopic Urinalysis Comment CULT NOT INDICATED Prothrombin Time 11.5 Prothromb Time International 1.0 Ratio Activated Partial 28.5 Thromboplast Time Test 12/21/16 13:07 Sodium Level 139 Potassium Level 4.1 Chloride Level 104 Carbon Dioxide Level 28.4 Anion Gap 7 Blood Urea Nitrogen 5 Creatinine 0.53 Estimat Glomerular Filtration 179 Rate Random Glucose 87 Serum Osmolality 286 Calcium Level 8.8 Date/Time Procedure Status Source Growth 12/20/16 23:40 Influenza Types A,B Antigen (KISHORE) - Final Complete Nasal Washing NEGATIVE FOR FLU A AND B ANTIGEN.... 12/20/16 23:40 Group A Streptococcus Screen - Preliminary Resulted Throat NO BETA STREPTOCOCCI ISOLATED AT 24 H... 12/20/16 23:40 Group A Streptococcus Screen (KISHORE) - Final Complete Throat 12/20/16 22:35 Aerobic Blood Culture - Preliminary Resulted Blood Peripheral NO GROWTH IN 1 DAY 12/20/16 22:35 Anaerobic Blood Culture - Preliminary Resulted Blood Peripheral NO GROWTH IN 1 DAY Result Diagram: 12/20/16 2235 12/21/16 1307 Imaging Last Impressions Shunt Study (Imaging) 12/20/16 0000 Signed Impressions: Service Date/Time: Tuesday, December 20, 2016 22:49 - CONCLUSION: Intact shunt on the right side. Gonzalez Tao MD Head CT 12/20/16 0000 Signed Impressions: Service Date/Time: Tuesday, December 20, 2016 23:03 - CONCLUSION: Air-fluid level right maxillary sinus could represent sinusitis. Pachygyri frontal lobes bilaterally. No evidence of intracranial hemorrhage or edema. Ventricles remain nondilated. Gonzalez Tao MD Assessment and Plan Assessment and Plan Sinusitis with Rhinorrhea ? bacterial vs viral. No fever, Normal WBC. Will treat as viral. Prior h/o APPLICATION ADMINISTRATOR shunt infection APPLICATION ADMINISTRATOR shunt in place. Mental retardation Intractable seizures difficult to control Recs Would not recommend LP or APPLICATION ADMINISTRATOR shunt micro/lab studies as clinically does not demonstrate signs of meningitis (moving his neck in all directions with no pain and awake and responsive and interactive with cousin visiting) Follow clinically overnight without any antibiotics. If no fevers no antibiotics on discharge. If fevers will assess need for short oral liquid augmentin course. Recommend decongestants to help with symptomatic management of sinusitis. Follow clinically Follow cultures Please follow temp curve and clinically and call me if fevers. Plan d.w patients mom and father in room. Plan d.w RN and . If overnight does well without antibiotics ok to DC home from ID standpoint on no antibiotics. Will sign off please call back if any change in clinical condition or questions. Dominique Barriga MD Dec 21, 2016 18:39
[2016-12-21 21:10] LABS: BICARBONATE 27.3 MEQ/L (21.0-32.0); POTASSIUM 4.1 MEQ/L (3.5-5.1)
[2016-12-22] VITALS (8 sets, daily range): BP systolic 103–143; BP diastolic 56–99; PULSE 68–89; RESP 16–20; TEMP 97.3–98.3; O2SAT 95–100
[2016-12-22] MEDS ORDERED: LEVOFLOXACIN 500 MG PREMIX INJ 100 ML IV SCH
[2016-12-22] MEDS: SODIUM CHLOR 0.9% 1000 ML INJ 1,000 ML IV SCH ×2 (01:30→13:33)
[2016-12-22] MEDS: HEPARIN SODIUM - SQ 10,000 UNITS/ML VIAL SQ SCH ×3 (06:03→20:46)
[2016-12-22 07:13] LABS: AUTOMATED NEUTROPHIL # 5.7 TH/MM3 (1.8-7.7); BASOPHIL % 0.5 % (0.0-2.0); EOSINOPHIL # 0.3 TH/MM3 (0-0.4); EOSINOPHIL % 2.8 % (0.0-4.0); HEMATOCRIT 34.8 % (39.0-51.0); HEMO FLAGS DIFF FINAL; LYMPH % 29.7 % (9.0-44.0); LYMPHOCYTE # 2.7 TH/MM3 (1.0-4.8); MEAN CELL VOLUME 93.1 FL (80.0-100.0); MEAN CORPUSCULAR HEMOGLOBIN 31.8 PG (27.0-34.0); MEAN CORPUSCULAR HGB CONC 34.1 % (32.0-36.0); MONO % 5.4 % (0.0-8.0); NEUT % 61.6 % (16.0-70.0); PLATELET COUNT 186 TH/MM3 (150-450); RED BLOOD COUNT 3.74 MIL/MM3 (4.50-5.90); RED CELL DISTRIBUTION WIDTH 13.6 % (11.6-17.2); WHITE BLOOD COUNT 9.2 TH/MM3 (4.0-11.0)
[2016-12-22 07:20] LABS: BICARBONATE 27.2 MEQ/L (21.0-32.0); POTASSIUM 3.9 MEQ/L (3.5-5.1)
--- NOTE | 2016-12-22 08:12 | HHI.PR ---
Review/Management Diagnosis/Plan: (1) Intractable seizures Plan: pt appears alert however mother does not feel he is at his baseline he is bedbound at baseline breakthrough 2/2 fevers/sinusitis sodium low- possibly 2/2 trileptal- on ns recs improved. doing well resume onfi- parents can bring to hospital if needed d/c planning once cleared by medical/i.d. iv ativan prn f/u with Dr. Hunter (2) Sinusitis Plan: i.d consulted (3) S/P FIXED INCOME ANALYST shunt (4) Chronic static encephalopathy Subjective Subjective Comments No acute events reported; doing much better per mother this am No headache No chest pain No dyspnea Active Medications Current Medications Medications (Trade) Dose Ordered Sig/Yvan Route Start Time Stop Time Status Last Admin (Tylenol) 650 mg Q4H PRN PO 12/21/16 02:45 (Zofran Inj) 4 mg Q6H PRN IVP 12/21/16 02:45 (Heparin Inj) 5,000 units Q8H SQ 12/21/16 06:00 12/22/16 06:03 (Narcan Inj) 0.4 mg UNSCH PRN IV 12/21/16 02:45 ([place]-Colace) 1 tab BID PO 12/21/16 09:00 12/21/16 20:54 (Milk Of Magnesia Liq) 30 ml Q12H PRN PO 12/21/16 02:45 (ZyPREXA) 2.5 mg BID PRN PO 12/21/16 11:15 (Trileptal) 300 mg TID PO 12/21/16 13:00 12/21/16 17:09 Pantoprazole Sodium 20 mg 20 mg DAILY PO 12/22/16 09:00 (NS 1000 ml Inj) 1,000 ml @ 75 mls/hr [id number] IV 12/21/16 11:15 12/22/16 01:30 Patient Own Medication PT OWN MED: ONFI (CLOBAZ... TID PO 12/22/16 09:00 Allergies Allergies Coded Allergies Cashew (Verified Allergy, Severe, SWELLING, 01/28/16) Keflex (Verified Allergy, Unknown, 12/20/16) Uncoded Allergies LIVE OAK ( Allergy, Severe, hives rash, 12/13/13) MOLD ( Allergy, Mild, conjestion, 12/13/13) Review of Systems All other ROS: ROS reviewed as documented in chart Exam I&O / VS 12/21/16 12/21/16 12/22/16 15:00 23:00 07:00 Intake Total 664 ml 670 ml Balance 664 ml 670 ml Intake IV Total 664 ml 670 ml # Voids 3 2 # Bowel Movements 0 0 Vital Signs Date Time Temp Pulse Resp B/P Pulse Ox O2 Delivery O2 Flow Rate FiO2 12/22/16 04:00 98.3 83 16 109/61 97 12/22/16 00:00 98.1 84 16 103/56 95 12/21/16 20:00 98.5 77 16 121/65 99 12/21/16 20:00 81 12/21/16 16:00 98.0 73 20 112/65 97 12/21/16 12:00 97.6 83 20 91/62 97 Respiratory: Non-labored respirations Cardiology: Normal rate Neurologic: Alert Exam Comments alert, sitting up, smiles, attempts to say a word, face sym. ou 3-2mm, ue in flexed position with contraction at wrist, with increased tone as is neal le. brisk msr; no sz activity noted Objective Micro and Labs Laboratory Tests Test 12/21/16 12/21/16 12/22/16 13:07 20:39 06:07 Sodium Level 139 137 136 Potassium Level 4.1 4.1 3.9 Chloride Level 104 103 101 Carbon Dioxide Level 28.4 27.3 27.2 Anion Gap 7 7 8 Blood Urea Nitrogen 5 6 7 Creatinine 0.53 0.63 0.65 Estimat Glomerular Filtration 179 147 141 Rate Random Glucose 87 92 75 Serum Osmolality 286 Calcium Level 8.8 8.3 8.8 White Blood Count 9.2 Red Blood Count 3.74 Hemoglobin 11.9 Hematocrit 34.8 Mean Corpuscular Volume 93.1 Mean Corpuscular Hemoglobin 31.8 Mean Corpuscular Hemoglobin 34.1 Concent Red Cell Distribution Width 13.6 Platelet Count 186 Mean Platelet Volume 7.5 Neutrophils (%) (Auto) 61.6 Lymphocytes (%) (Auto) 29.7 Monocytes (%) (Auto) 5.4 Eosinophils (%) (Auto) 2.8 Basophils (%) (Auto) 0.5 Neutrophils # (Auto) 5.7 Lymphocytes # (Auto) 2.7 Monocytes # (Auto) 0.5 Eosinophils # (Auto) 0.3 Basophils # (Auto) 0.0 CBC Comment DIFF FINAL Differential Comment Date/Time Procedure Status Source Growth 12/20/16 23:40 Influenza Types A,B Antigen (KISHORE) - Final Complete Nasal Washing NEGATIVE FOR FLU A AND B ANTIGEN.... 12/20/16 23:40 Group A Streptococcus Screen - Preliminary Resulted Throat NO BETA STREPTOCOCCI ISOLATED AT 24 H... 12/20/16 23:40 Group A Streptococcus Screen (KISHORE) - Final Complete Throat 12/20/16 22:35 Aerobic Blood Culture - Preliminary Resulted Blood Peripheral NO GROWTH IN 1 DAY 12/20/16 22:35 Anaerobic Blood Culture - Preliminary Resulted Blood Peripheral NO GROWTH IN 1 DAY Problem Qualifiers (1) Sinusitis: Qualified Code: J01.00 - Acute maxillary sinusitis, recurrence not specified Jurgen Caruso MD Dec 22, 2016 08:12
[2016-12-22] MEDS: PANTOPRAZOLE SOD 20 MG DELAYED RELEASE TAB PO SCH (08:21)
[2016-12-22] MEDS: OXcarbazepine 300 MG TAB PO SCH ×3 (08:21→18:44)
[2016-12-22] MEDS: DOCUSATE SODIUM 50 MG/SENNA 8.6 MG TAB PO SCH ×2 (08:21→20:46)
[2016-12-22] MEDS: ONFI 20 MG PO SCH ×3 (08:21→18:44)
--- NOTE | 2016-12-22 13:11 | OTSOAPIP ---
TIME SESSION COMPLETED: 1:05 PM TREATMENT TIME: 5 MINS. CHART REVIEWED. PATIENTS MOTHER AND FATHER PRESENT IN ROOM. INTRODUCED MYSELF AND EXPLAINED ORDER REQUEST. PATIENTS MOTHER REPORTS THAT HE HAS AN OCCUPATIONAL THERAPIST AT HOME AND DOES NOT REQUIRE IN THE HOSPITAL SETTING. REVIEWED THAT PARENTS REQUEST NO ROM OR SPLINTING INTERVENTION IN ACUTE CARE AND THEY BOTH AGREED. WILL DISCHARGE ORDER. Therapist: Elis Bernabe OTR/L Signature on file
[2016-12-22 13:30] LABS: POTASSIUM 4.1 MEQ/L (3.5-5.1)
--- NOTE | 2016-12-22 14:14 | HHI.PR ---
Subjective Remarks Mother and father at bedside and state that pt did well overnight, no acute events. no fevers or new episodes of shaking. Pt has been back to baseline per mom and dad hoping to take him home soon Objective Vitals Vital Signs Date Time Temp Pulse Resp B/P Pulse Ox O2 Delivery O2 Flow Rate FiO2 12/22/16 12:00 98.1 81 20 107/70 100 12/22/16 08:15 Room Air 12/22/16 08:00 97.3 74 20 124/93 100 12/22/16 07:58 68 12/22/16 04:00 98.3 83 16 109/61 97 12/22/16 00:00 98.1 84 16 103/56 95 12/21/16 20:00 98.5 77 16 121/65 99 12/21/16 20:00 81 12/21/16 16:00 98.0 73 20 112/65 97 I/O 12/21/16 12/21/16 12/21/16 12/22/16 12/22/16 12/22/16 07:00 15:00 23:00 07:00 15:00 23:00 Intake Total 664 ml 670 ml 549 ml Balance 664 ml 670 ml 549 ml Intake IV Total 664 ml 670 ml 549 ml # Voids 3 2 # Bowel Movements 0 0 Result Diagram: 12/22/16 0607 12/22/16 1237 Imaging Last Impressions Shunt Study (Imaging) 12/20/16 0000 Signed Impressions: Service Date/Time: Tuesday, December 20, 2016 22:49 - CONCLUSION: Intact shunt on the right side. Gonzalez Tao MD Head CT 12/20/16 0000 Signed Impressions: Service Date/Time: Tuesday, December 20, 2016 23:03 - CONCLUSION: Air-fluid level right maxillary sinus could represent sinusitis. Pachygyri frontal lobes bilaterally. No evidence of intracranial hemorrhage or edema. Ventricles remain nondilated. Gonzalez Tao MD Objective Remarks GENERAL: This is a well-nourished, well-developed patient, in no apparent distress. SKIN: No rashes, ecchymoses or lesions. Cool and dry. CARDIOVASCULAR: Regular rate and rhythm without murmurs. RESPIRATORY: Clear to auscultation. Breath sounds equal bilaterally. No wheezes GASTROINTESTINAL: Abdomen soft, non-tender, nondistended. No palpable masses. No guarding. MUSCULOSKELETAL: Extremities without edema. Contractures noted in the upper extremities. Minimal movement in the lower extremities noted. Pedal pulses palpated NEUROLOGICAL: Awake and alert. Nonverbal A/P Assessment and Plan Pt at least meets SIRS criteria and at this time, only possible source of infection suspected to be sinusitis noted on CT scan. one of the blood cx grew gram positive cocci. Clinically pt is doing well and is back to baseline while off abx overnight. Discussed w ID and Dr. Barriga has called the microbiology lab and is awaiting final results. Strep throat screening is negative. Influenza negative. CT head concerning for right sided sinusitis. Patient received a dose of Levaquin in the ER and it was continued Levaquin IV 500 mg daily however stopped by ID. Shunt imaging was normal. Patient not presenting without any meningeal signs at this time although it's difficult to obtain history from patient himself. No coughing per mother. UA reviewed, showed some yeast however no UTI noted s/p one dose of diflucan. Seizure: Patient had 2 episodes at home and apparently also noted in the ER. His neurologist is Dr. Hunter. home meds resumed. Patient is seizure free at this time. Check EEG. no new changes to regimen at this time per neuro. ativa prn. contractures: place padding to protect elbows, PT to evaluate pt leukocytosis: resolved. hyponatremia; 127 on admission. resolved s/p gentle hydration, could be from sz meds as well. U/A w budding yeast but no UTI: s/p one dose of diflucan. 3:37 pm: discussed w Dr. Barriga and she recommends repeating the blood cultures and monitor for now off abx. if afebrile and blood cx neg, contact Dr. Rios to review chart in AM prior to discharge. Discharge Planning anticipate d/c tomorrow if repeat blood cx neg and pt afebrile overnight w no abx Natividad Castelan MD Dec 22, 2016 14:14
--- NOTE | 2016-12-22 15:58 | HHI.IDPN ---
Subjective Subjective Remarks Mr. 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 Hunter), GENERAL MAGISTRATE shunt placement, GERD, nephrolithiasis. With this background patient presents to the emergency room w family because of seizure like activity. Patient is nonverbal and therefore mother and father give history. Mother states that around 8:30 last night, patient started shaking and she thought he had a seizure. He had a second episode where the whole wheelchair was shaking and patient's eyes were moving [id number]. Afterwards, patient became lethargic. Mother denies any fevers at home. Prior to 8:30 patient was acting his normal self. Patient's appetite has been the same with no changes. She admits to some clear drainage in his nostrils yesterday 1 episode. She did also note bad breath yesterday which is new for him as she does clean his teeth regularly. Other denies any fevers at home. Mother was concerned about the shunt. Denies any cough Prior history of GENERAL MAGISTRATE shunt infections treated with antibiotics in the past. Infectious disease is consulted for evaluation and management of possible GENERAL MAGISTRATE shunt-related infection. Reconsulted by for bacteremia Overnight events reviewed No fevers No rash No diarrhea At baseline mentation. Antibiotics None Lines Line sites with no e.o infection Past Medical History reviewed Allergies: Coded Allergies: Cashew (Verified Allergy, Severe, SWELLING, 01/28/16) Keflex (Verified Allergy, Unknown, 12/20/16) Uncoded Allergies: LIVE OAK (Allergy, Severe, hives rash, 12/13/13) MOLD (Allergy, Mild, conjestion, 12/13/13) Objective . Vital Signs Date Time Temp Pulse Resp B/P Pulse Ox O2 Delivery O2 Flow Rate FiO2 12/22/16 12:00 98.1 81 20 107/70 100 12/22/16 08:15 Room Air 12/22/16 08:00 97.3 74 20 124/93 100 12/22/16 07:58 68 12/22/16 04:00 98.3 83 16 109/61 97 12/22/16 00:00 98.1 84 16 103/56 95 12/21/16 20:00 98.5 77 16 121/65 99 12/21/16 20:00 81 12/21/16 16:00 98.0 73 20 112/65 97 12/21/16 12/21/16 12/22/16 15:00 23:00 07:00 Intake Total 664 ml 670 ml Balance 664 ml 670 ml Intake IV Total 664 ml 670 ml # Voids 3 2 # Bowel Movements 0 0 . Laboratory Tests Test 12/20/16 12/22/16 22:35 06:07 White Blood Count 12.3 TH/MM3 9.2 TH/MM3 Red Blood Count 4.30 MIL/MM3 3.74 MIL/MM3 Hemoglobin 13.8 GM/DL 11.9 GM/DL Hematocrit 38.8 % 34.8 % Mean Corpuscular Volume 90.3 FL 93.1 FL Mean Corpuscular Hemoglobin 32.0 PG 31.8 PG Mean Corpuscular Hemoglobin 35.5 % 34.1 % Concent Red Cell Distribution Width 13.1 % 13.6 % Platelet Count 217 TH/MM3 186 TH/MM3 Mean Platelet Volume 7.4 FL 7.5 FL Neutrophils (%) (Auto) 89.0 % 61.6 % Lymphocytes (%) (Auto) 4.7 % 29.7 % Monocytes (%) (Auto) 5.8 % 5.4 % Eosinophils (%) (Auto) 0.2 % 2.8 % Basophils (%) (Auto) 0.3 % 0.5 % Neutrophils # (Auto) 11.0 TH/MM3 5.7 TH/MM3 Lymphocytes # (Auto) 0.6 TH/MM3 2.7 TH/MM3 Monocytes # (Auto) 0.7 TH/MM3 0.5 TH/MM3 Eosinophils # (Auto) 0.0 TH/MM3 0.3 TH/MM3 Basophils # (Auto) 0.0 TH/MM3 0.0 TH/MM3 CBC Comment AUTO DIFF DIFF FINAL Differential Total Cells 100 Counted Neutrophils % (Manual) 74 % Band Neutrophils % 14 % Lymphocytes % 10 % Monocytes % 2 % Neutrophils # (Manual) 10.8 TH/MM3 Differential Comment FINAL DIFF MANUAL Atypical Lymphocytes % Platelet Estimate NORMAL Platelet Morphology Comment NORMAL Red Cell Morphology Comment NORMAL Laboratory Tests Test 12/20/16 12/21/16 12/21/16 12/21/16 22:35 01:20 13:07 20:39 Sodium Level 127 MEQ/L 139 MEQ/L 137 MEQ/L Potassium Level 4.3 MEQ/L 4.1 MEQ/L 4.1 MEQ/L Chloride Level 92 MEQ/L 104 MEQ/L 103 MEQ/L Carbon Dioxide Level 31.6 MEQ/L 28.4 MEQ/L 27.3 MEQ/L Anion Gap 3 MEQ/L 7 MEQ/L 7 MEQ/L Blood Urea Nitrogen 8 MG/DL 5 MG/DL 6 MG/DL Creatinine 0.75 MG/DL 0.53 MG/DL 0.63 MG/DL Estimat Glomerular Filtration 120 ML/MIN 179 ML/MIN 147 ML/MIN Rate Random Glucose 112 MG/DL 87 MG/DL 92 MG/DL Calcium Level 8.9 MG/DL 8.8 MG/DL 8.3 MG/DL Total Bilirubin 0.3 MG/DL Aspartate Amino Transf 29 U/L (AST/SGOT) Alanine Aminotransferase 50 U/L (ALT/SGPT) Alkaline Phosphatase 97 U/L Total Protein 7.7 GM/DL Albumin 4.1 GM/DL Lactic Acid Level 2.8 mmol/L 1.6 mmol/L Serum Osmolality 286 MOSM/KG Test 12/22/16 12/22/16 06:07 12:37 Sodium Level 136 MEQ/L 137 MEQ/L Potassium Level 3.9 MEQ/L 4.1 MEQ/L Chloride Level 101 MEQ/L 100 MEQ/L Carbon Dioxide Level 27.2 MEQ/L 30.0 MEQ/L Anion Gap 8 MEQ/L 7 MEQ/L Blood Urea Nitrogen 7 MG/DL 6 MG/DL Creatinine 0.65 MG/DL 0.55 MG/DL Estimat Glomerular Filtration 141 ML/MIN 172 ML/MIN Rate Random Glucose 75 MG/DL 80 MG/DL Calcium Level 8.8 MG/DL 8.8 MG/DL Microbiology Date/Time Procedure Status Source Growth 12/20/16 22:30 Aerobic Blood Culture - Preliminary Resulted Blood Peripheral Staphylococcus Epidermidis Streptococcus Species 12/20/16 22:30 Anaerobic Blood Culture - Preliminary Resulted Blood Peripheral NO GROWTH IN 2 DAYS 12/20/16 22:35 Aerobic Blood Culture - Preliminary Resulted Blood Peripheral NO GROWTH IN 2 DAYS 12/20/16 22:35 Anaerobic Blood Culture - Preliminary Resulted Blood Peripheral NO GROWTH IN 2 DAYS 12/20/16 23:40 Group A Streptococcus Screen (KISHORE) - Final Complete Throat 12/20/16 23:40 Influenza Types A,B Antigen (KISHORE) - Final Complete Nasal Washing NEGATIVE FOR FLU A AND B ANTIGEN.... 12/20/16 23:40 Group A Streptococcus Screen - Final Complete Throat NO GP A BETA STREP ISOLATED. Imaging Last Impressions Shunt Study (Imaging) 12/20/16 0000 Signed Impressions: Service Date/Time: Tuesday, December 20, 2016 22:49 - CONCLUSION: Intact shunt on the right side. Gonzalez Tao MD Head CT 12/20/16 0000 Signed Impressions: Service Date/Time: Tuesday, December 20, 2016 23:03 - CONCLUSION: Air-fluid level right maxillary sinus could represent sinusitis. Pachygyri frontal lobes bilaterally. No evidence of intracranial hemorrhage or edema. Ventricles remain nondilated. Gonzalez Tao MD Physical Exam GENERAL: This is a well-nourished, well-developed patient, in no apparent distress. SKIN: No rashes, ecchymoses or lesions. Cool and dry. HEAD: Atraumatic. Normocephalic. No temporal or scalp tenderness. EYES: Pupils equal round and reactive. Extraocular motions intact. No scleral icterus. No injection or drainage. ENT: Nose without bleeding, purulent drainage or septal hematoma. Throat without erythema, tonsillar hypertrophy or exudate. Uvula midline. Airway patent. NECK: Trachea midline. Supple, nontender, no meningeal signs. CARDIOVASCULAR: Regular rate and rhythm without murmurs, gallops, or rubs. RESPIRATORY: Clear to auscultation. Breath sounds equal bilaterally. No wheezes , rales, or rhonchi. GASTROINTESTINAL: Abdomen soft, non-tender, nondistended. MUSCULOSKELETAL: Extremities without clubbing, cyanosis, or edema. No joint tenderness, effusion, or edema noted. No calf tenderness. Negative Homans sign bilaterally. NEUROLOGICAL: Awake and alert. He grunts but no verbalization for me. Psych cooperative other components difficult to assess IV line sites with no evidence of infection. Assessment & Plan Remarks Sinusitis with Rhinorrhea ? likely viral. No fever, Normal WBC. Will treat as viral. Coag neg staph and Strep species bacteremia ? contaminant. Prior h/o GENERAL MAGISTRATE shunt infection GENERAL MAGISTRATE shunt in place. Mental retardation Intractable seizures difficult to control Recs Would not recommend LP or GENERAL MAGISTRATE shunt micro/lab studies as clinically does not demonstrate signs of meningitis (moving his neck in all directions with no pain and awake and responsive and interactive with cousin visiting) Follow clinically overnight without any antibiotics. If no fevers at 48 hours and blood cultures remain negative no antibiotics on discharge. Follow clinically Follow cultures Plan d.w patients mom and father in room. Plan [email or web address] RN and If overnight does well without antibiotics ok to DC home from ID standpoint on no antibiotics. Please call in am to discuss plan with her so she can review chart as well. Dominique Barriga MD Dec 22, 2016 15:58
[2016-12-22 19:21] LABS: BICARBONATE 29.9 MEQ/L (21.0-32.0); POTASSIUM 3.5 MEQ/L (3.5-5.1)
[2016-12-23] VITALS: BP 92/53; PULSE 66; RESP 18; TEMP 97.7; O2SAT 97
[2016-12-23 01:46] LABS: BICARBONATE 28.7 MEQ/L (21.0-32.0); POTASSIUM 3.7 MEQ/L (3.5-5.1)
[2016-12-23 04:00] VITALS: BP 104/70; PULSE 79; RESP 18; TEMP 97.5; O2SAT 95
[2016-12-23] MEDS: HEPARIN SODIUM - SQ 10,000 UNITS/ML VIAL SQ SCH ×2 (06:30→12:57)
[2016-12-23 07:35] VITALS: PULSE 79
[2016-12-23 08:05] VITALS: BP 115/74; PULSE 84; RESP 18; TEMP 97.4; O2SAT 99
[2016-12-23] MEDS: PANTOPRAZOLE SOD 20 MG DELAYED RELEASE TAB PO SCH (08:56)
[2016-12-23] MEDS: DOCUSATE SODIUM 50 MG/SENNA 8.6 MG TAB PO SCH (08:56)
[2016-12-23] MEDS: ONFI 20 MG PO SCH ×2 (08:56→12:57)
[2016-12-23] MEDS: OXcarbazepine 300 MG TAB PO SCH ×2 (08:56→12:57)
[2016-12-23 12:11] VITALS: BP 110/67; PULSE 72; RESP 18; TEMP 97.6; O2SAT 100
--- NOTE | 2016-12-23 15:20 | HHI.DS ---
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 Patient is nonverbal and therefore mother and father give history. Mother states that around 8:30 last night, patient started shaking and she thought he had a seizure. He had a second episode where the whole wheelchair was shaking and patient's eyes were moving [id number]. Afterwards, patient became lethargic. Mother denies any fevers at home. Prior to 8:30 patient was acting his normal self. Patient's appetite has been the same with no changes. Per mother, patient was not complaining of any pain and she states that he has a high tolerance for pain. Her mother thought that maybe he had aspirated because he had some labored breathing during the episodes where he was shaking. She denies him choking on his food. She admits to some clear drainage in his nostrils yesterday 1 episode. She did also note bad breath yesterday which is new for him as she does clean his teeth regularly. Other denies any fevers at home. Mother was concerned about the shunt. Denies any cough CBC/BMP: 12/22/16 0607 12/23/16 0028 Significant Findings Laboratory Tests Test 12/20/16 12/20/16 12/21/16 12/21/16 22:35 23:40 13:07 20:39 White Blood Count 12.3 TH/MM3 (4.0-11.0) Red Blood Count 4.30 MIL/MM3 (4.50-5.90) Hematocrit 38.8 % (39.0-51.0) Neutrophils (%) (Auto) 89.0 % (16.0-70.0) Lymphocytes (%) (Auto) 4.7 % (9.0-44.0) Neutrophils # (Auto) 11.0 TH/MM3 (1.8-7.7) Lymphocytes # (Auto) 0.6 TH/MM3 (1.0-4.8) Neutrophils % (Manual) 74 % (16-70) Band Neutrophils % 14 % (0-6) Neutrophils # (Manual) 10.8 TH/MM3 (1.8-7.7) Sodium Level 127 MEQ/L (136-145) Chloride Level 92 MEQ/L (98-107) Anion Gap 3 MEQ/L (5-15) Random Glucose 112 MG/DL (74-106) Lactic Acid Level 2.8 mmol/L (0.4-2.0) Urine Turbidity HAZY (CLEAR) Urine Mucus FEW /lpf (OCC) Urine Yeast (Budding) MANY (NONE) Blood Urea Nitrogen 5 MG/DL (7-18) 6 MG/DL (7-18) Creatinine 0.53 MG/DL (0.60-1.30) Calcium Level 8.3 MG/DL (8.5-10.1) Test 12/22/16 12/22/16 12/22/16 12/23/16 06:07 12:37 18:20 00:28 Red Blood Count 3.74 MIL/MM3 (4.50-5.90) Hemoglobin 11.9 GM/DL (13.0-17.0) Hematocrit 34.8 % (39.0-51.0) Blood Urea Nitrogen 6 MG/DL (7-18) 5 MG/DL (7-18) 6 MG/DL (7-18) Creatinine 0.55 MG/DL 0.56 MG/DL 0.43 MG/DL (0.60-1.30) (0.60-1.30) (0.60-1.30) Sodium Level 134 MEQ/L 135 MEQ/L (136-145) (136-145) Calcium Level 8.4 MG/DL (8.5-10.1) PE at Discharge GENERAL: This is a well-nourished, well-developed patient, in no apparent distress. SKIN: No rashes, ecchymoses or lesions. Cool and dry. CARDIOVASCULAR: Regular rate and rhythm without murmurs. RESPIRATORY: Clear to auscultation. Breath sounds equal bilaterally. No wheezes GASTROINTESTINAL: Abdomen soft, non-tender, nondistended. No palpable masses. No guarding. MUSCULOSKELETAL: Extremities without edema. Contractures noted in the upper extremities. Minimal movement in the lower extremities noted. Pedal pulses palpated NEUROLOGICAL: Awake and alert. Nonverbal Pt update on day of discharge pt doing well. back at baseline, mother happy and comfortable taking him home today. no concerns at this time. Hospital Course Pt at least meets SIRS criteria and at this time, only possible source of infection suspected to be sinusitis noted on CT scan. one of the 4 blood cx grew staph epi and viridens strep. Pt is doing well and is back to baseline while off abx x48hrs. Strep throat screening is negative. Influenza negative. CT head concerning for right sided sinusitis. Patient received a dose of Levaquin in the ER and it was continued Levaquin IV 500 mg daily however stopped by ID. Shunt imaging was normal. Patient not presenting without any meningeal signs at this time although it's difficult to obtain history from patient himself. No coughing per mother. UA reviewed, showed some yeast however no UTI noted s/p one dose of diflucan. Discussed with infectious disease. Repeat blood cultures so far negative 1 day. Patient has been afebrile for 48 hours. At this time, we'll discharge home with no antibiotics. ID will follow up the repeat blood cultures until final, if positive, patient will need to come back to the hospital. However, at this time patient is cleared for discharge from an ID standpoint Seizure: Patient had 2 episodes at home and apparently also noted in the ER. His neurologist is Dr. Hunter. home meds resumed. Neurology evaluated the patient while the hospital. Patient has been seizure free since admission. no new changes to regimen at this time per neuro. ativa prn. Pt Condition on Discharge: Stable Discharge Disposition: Discharge Home Discharge Time: > 30 minutes Discharge Instructions DIET: Follow Instructions for: As Tolerated, No Restrictions Activities you can perform: Regular-No Restrictions Follow up Referrals: Neurology - 1 Week PCP Follow-up - 1 Week Continued Medications: Clobazam (Onfi) 20 Mg Tab 20 MG PO TID TAB Olanzapine (Zyprexa) 2.5 Mg Tab 2.5 MG PO BID PRN AGITATION #60 Ref 0 TAB Omeprazole (Omeprazole) 20 Mg Tab 20 MG PO DAILY #30 Ref 0 TAB Oxcarbazepine (Oxcarbazepine) 300 Mg Tab 300 MG PO TID Seizure Control #60 Ref 0 TAB Natividad Castelan MD Dec 23, 2016 15:20
--- NOTE | 2016-12-23 16:22 | HHI.IDPN ---
Subjective Subjective Remarks ID [id number] for Dr Barriga chart reviewed Mr. 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 On the day of presentation around 8:30 last night, patient started shaking and she thought he had a seizure. He had a second episode where the whole wheelchair was shaking and patient's eyes were moving [id number]. Afterwards, patient became lethargic. Mother denies any fevers at home. Prior to 8:30 patient was acting his normal self. Patient's appetite has been the same with no changes. + some clear drainage in his nostrils yesterday 1 episode. Prior history of TREE TRIMMING LINE TECHNICIAN shunt infections treated with antibiotics in the past. Infectious disease is consulted for evaluation and management of possible TREE TRIMMING LINE TECHNICIAN shunt-related infection. Dr Barriga saw the pt and did not recommended LP or TREE TRIMMING LINE TECHNICIAN shunt micro/lab studies as clinically does not demonstrate signs of meningitis (moving his neck in all directions with no pain and awake and responsive and interactive with cousin visiting) and recommended follow clinically without any antibiotics. N o fevers off antibiotics recirred His blood clx showed bacteremia with 1/4 bottles positive for viridans strep and coag neg staph All other 3 bottles are negative @ 72 hrs Repeat BC all sterile @ 24 hrs dw father - pt MS is back to his baseline Overnight events no fevers and at baseline mentation. Antibiotics None Lines Line sites with no e.o infection Past Medical History reviewed Allergies: Coded Allergies: Cashew (Verified Allergy, Severe, SWELLING, 01/28/16) Keflex (Verified Allergy, Unknown, 12/20/16) Uncoded Allergies: LIVE OAK (Allergy, Severe, hives rash, 12/13/13) MOLD (Allergy, Mild, conjestion, 12/13/13) Objective . Vital Signs Date Time Temp Pulse Resp B/P Pulse Ox O2 Delivery O2 Flow Rate FiO2 12/23/16 12:11 97.6 72 18 110/67 100 12/23/16 12:00 Room Air 12/23/16 09:10 Room Air 12/23/16 08:05 97.4 84 18 115/74 99 12/23/16 07:35 79 12/23/16 04:00 97.5 79 18 104/70 95 12/23/16 00:00 97.7 66 18 92/53 97 12/22/16 20:15 76 12/22/16 20:15 Room Air 12/22/16 20:00 97.8 89 18 136/96 95 12/22/16 12/22/16 12/23/16 15:00 23:00 07:00 Intake Total 789 ml 360 ml 0 ml Balance 789 ml 360 ml 0 ml Intake Oral 240 ml 360 ml 0 ml IV Total 549 ml # Voids 3 4 1 # Bowel Movements 0 0 0 . Laboratory Tests Test 12/22/16 06:07 White Blood Count 9.2 TH/MM3 Red Blood Count 3.74 MIL/MM3 Hemoglobin 11.9 GM/DL Hematocrit 34.8 % Mean Corpuscular Volume 93.1 FL Mean Corpuscular Hemoglobin 31.8 PG Mean Corpuscular Hemoglobin 34.1 % Concent Red Cell Distribution Width 13.6 % Platelet Count 186 TH/MM3 Mean Platelet Volume 7.5 FL Neutrophils (%) (Auto) 61.6 % Lymphocytes (%) (Auto) 29.7 % Monocytes (%) (Auto) 5.4 % Eosinophils (%) (Auto) 2.8 % Basophils (%) (Auto) 0.5 % Neutrophils # (Auto) 5.7 TH/MM3 Lymphocytes # (Auto) 2.7 TH/MM3 Monocytes # (Auto) 0.5 TH/MM3 Eosinophils # (Auto) 0.3 TH/MM3 Basophils # (Auto) 0.0 TH/MM3 CBC Comment DIFF FINAL Differential Comment Laboratory Tests Test 12/21/16 12/22/16 12/22/16 12/22/16 20:39 06:07 12:37 18:20 Sodium Level 137 MEQ/L 136 MEQ/L 137 MEQ/L 134 MEQ/L Potassium Level 4.1 MEQ/L 3.9 MEQ/L 4.1 MEQ/L 3.5 MEQ/L Chloride Level 103 MEQ/L 101 MEQ/L 100 MEQ/L 99 MEQ/L Carbon Dioxide Level 27.3 MEQ/L 27.2 MEQ/L 30.0 MEQ/L 29.9 MEQ/L Anion Gap 7 MEQ/L 8 MEQ/L 7 MEQ/L 5 MEQ/L Blood Urea Nitrogen 6 MG/DL 7 MG/DL 6 MG/DL 5 MG/DL Creatinine 0.63 MG/DL 0.65 MG/DL 0.55 MG/DL 0.56 MG/DL Estimat Glomerular Filtration 147 ML/MIN 141 ML/MIN 172 ML/MIN 168 ML/MIN Rate Random Glucose 92 MG/DL 75 MG/DL 80 MG/DL 82 MG/DL Calcium Level 8.3 MG/DL 8.8 MG/DL 8.8 MG/DL 8.7 MG/DL Test 12/23/16 00:28 Sodium Level 135 MEQ/L Potassium Level 3.7 MEQ/L Chloride Level 98 MEQ/L Carbon Dioxide Level 28.7 MEQ/L Anion Gap 8 MEQ/L Blood Urea Nitrogen 6 MG/DL Creatinine 0.43 MG/DL Estimat Glomerular Filtration 228 ML/MIN Rate Random Glucose 82 MG/DL Calcium Level 8.4 MG/DL Microbiology Date/Time Procedure Status Source Growth 12/20/16 22:30 Aerobic Blood Culture - Final Resulted Blood Peripheral Staphylococcus Epidermidis Viridans Streptococcus Grp 12/20/16 22:30 Anaerobic Blood Culture - Preliminary Resulted Blood Peripheral NO GROWTH IN 3 DAYS 12/20/16 22:35 Aerobic Blood Culture - Preliminary Resulted Blood Peripheral NO GROWTH IN 3 DAYS 12/20/16 22:35 Anaerobic Blood Culture - Preliminary Resulted Blood Peripheral NO GROWTH IN 3 DAYS 12/20/16 23:40 Group A Streptococcus Screen ([facility]ORE) - Final Complete Throat 12/20/16 23:40 Influenza Types A,B Antigen (KISHORE) - Final Complete Nasal Washing NEGATIVE FOR FLU A AND B ANTIGEN.... 12/20/16 23:40 Group A Streptococcus Screen - Final Complete Throat NO GP A BETA STREP ISOLATED. 12/22/16 18:20 Aerobic Blood Culture - Preliminary Resulted Blood Peripheral NO GROWTH IN 1 DAY 12/22/16 18:20 Anaerobic Blood Culture - Preliminary Resulted Blood Peripheral NO GROWTH IN 1 DAY 12/22/16 18:29 Aerobic Blood Culture - Preliminary Resulted Blood Peripheral NO GROWTH IN 1 DAY 12/22/16 18:29 Anaerobic Blood Culture - Preliminary Resulted Blood Peripheral NO GROWTH IN 1 DAY Imaging Last Impressions Shunt Study (Imaging) 12/20/16 0000 Signed Impressions: Service Date/Time: Tuesday, December 20, 2016 22:49 - CONCLUSION: Intact shunt on the right side. Gonzalez Tao MD Head CT 12/20/16 0000 Signed Impressions: Service Date/Time: Tuesday, December 20, 2016 23:03 - CONCLUSION: Air-fluid level right maxillary sinus could represent sinusitis. Pachygyri frontal lobes bilaterally. No evidence of intracranial hemorrhage or edema. Ventricles remain nondilated. Gonzalez Tao MD Physical Exam GENERAL: This is a well-nourished, well-developed patient, in no apparent distress. SKIN: No rashes, ecchymoses or lesions. Cool and dry. HEAD: Well healed incision over R parietal region w/o any redness and swelling EYES: Pupils equal round and reactive. Extraocular motions intact. No scleral icterus. No injection or drainage. ENT: Nose without bleeding, purulent drainage or septal hematoma. Throat without erythema, tonsillar hypertrophy or exudate. Uvula midline. Airway patent. NECK: Trachea midline. Supple, nontender, no meningeal signs. CARDIOVASCULAR: Regular rate and rhythm without murmurs, gallops, or rubs. RESPIRATORY: Clear to auscultation. Breath sounds equal bilaterally. No wheezes , rales, or rhonchi. GASTROINTESTINAL: Abdomen soft, non-tender, nondistended. MUSCULOSKELETAL: Extremities without clubbing, cyanosis, or edema. No joint tenderness, effusion, or edema noted. No calf tenderness. Negative Homans sign bilaterally. NEUROLOGICAL: Awake and alert. Eye opned He grunts but no verbalization for me. Psych cooperative other components not possible to assess IV line sites with no evidence of infection. Assessment & Plan Remarks Coag neg staph and viridans Strep species bacteremia , low grade, 1/4 - most cw contaminant. - repeat clx negative Prior h/o TREE TRIMMING LINE TECHNICIAN shunt infection Febrile illness: -Sinusitis with Rhinorrhea ? likely viral. No fever, Normal WBC. Will treat as viral. - TREE TRIMMING LINE TECHNICIAN shunt in place - placed 7 yrs ago - No e/o TREE TRIMMING LINE TECHNICIAN shunt infx - resolved fever - resolved MS change Mental retardation Intractable seizures difficult to control Recs Would not recommend LP or TREE TRIMMING LINE TECHNICIAN shunt micro/lab studies as clinically does not demonstrate signs of meningitis (moving his neck in all directions with no pain and awake and responsive and interactive with cousin visiting) No antibiotics on discharge. OK to dc pt home Follow cultures untill final ; if more positive clx will need to bring pt back Plan kuldip father in room. Plan Riya Murillo MD Dec 23, 2016 16:22
== END 2016-12-23 16:30 | disposition home or self-care (01) | DRG 152 ==
LOC: NEPE 21:32 → NEDA 12-21 00:50 → N04B 12-21 04:22
PROVIDERS: ADMIT Hospitalist; ATTEND Hospitalist
DX: J01.00 Acute maxillary sinusitis, unspecified (principal); G93.49 Other encephalopathy; G40.919 Epilepsy, unspecified, intractable, without status epilepticus; R65.10 Systemic inflammatory response syndrome (SIRS) of non-infectious origin without acute organ dysfunction; Q04.8 Other specified congenital malformations of brain; E87.1 Hypo-osmolality and hyponatremia; K21.9 Gastro-esophageal reflux disease without esophagitis; Z98.2 Presence of cerebrospinal fluid drainage device; Z87.442 Personal history of urinary calculi; Z99.3 Dependence on wheelchair; Z88.1 Allergy status to other antibiotic agents; Z88.0 Allergy status to penicillin; Z91.018 Allergy to other foods; F79 Unspecified intellectual disabilities
CPT/HCPCS: 70250; 70450; 71010; 72040; 74000; 80048; 80053; 80183; 81001; 82948; 83605; 83930; 85007; 85025; 85027; 85610; 85730; 87040; 87081; 87149; 87205; 87804; 87880; 95819; 96361; 96374; J1644; J1956; J7030

== ENCOUNTER → 2017-02-07 | Outpatient (CLI) | payer MEDICARE, OTHER ==
[~2017-02-07] MED LIST changes: -ESLI1TAB2 PO; +OMEP20TA PO; +ONFI20TA PO; +OXCA300T PO; -PRIL20CA PO; +ZYPR2.5T2 PO; -ZYPR5TAB PO; -[UNRECOGNIZED DRUG - CODE] PO
[2017-02-07 13:29] LABS: AUTOMATED NEUTROPHIL # 3.2 TH/MM3 (1.8-7.7); BASOPHIL % 0.7 % (0.0-2.0); EOSINOPHIL # 0.2 TH/MM3 (0-0.4); EOSINOPHIL % 4.8 % (0.0-4.0); HEMATOCRIT 35.9 % (39.0-51.0); HEMO FLAGS DIFF FINAL; LYMPH % 22.7 % (9.0-44.0); LYMPHOCYTE # 1.1 TH/MM3 (1.0-4.8); MEAN CELL VOLUME 91.9 FL (80.0-100.0); MEAN CORPUSCULAR HEMOGLOBIN 32.6 PG (27.0-34.0); MEAN CORPUSCULAR HGB CONC 35.4 % (32.0-36.0); MONO % 6.8 % (0.0-8.0); PLATELET COUNT 268 TH/MM3 (150-450); RED BLOOD COUNT 3.91 MIL/MM3 (4.50-5.90); RED CELL DISTRIBUTION WIDTH 12.7 % (11.6-17.2); WHITE BLOOD COUNT 4.9 TH/MM3 (4.0-11.0)
[2017-02-07 13:35] LABS: ANION GAP 7 MEQ/L (5-15); AST (GOT) 14 U/L (15-37); BICARBONATE 26.6 MEQ/L (21.0-32.0); BLOOD UREA NITROGEN 6 MG/DL (7-18); CHLORIDE 92 MEQ/L (98-107); GLOMERULAR FILTRATION RATE 134 ML/MIN (>89); POTASSIUM 3.7 MEQ/L (3.5-5.1); SODIUM (NA) 126 MEQ/L (136-145)
[2017-02-07 13:39] LABS: ALKALINE PHOSPHATASE 95 U/L (45-117); ALT (GPT) 32 U/L (12-78); TOTAL BILIRUBIN ADULT 0.3 MG/DL (0.2-1.0)
== END ==
LOC: PLAB 09:25
PROVIDERS: ATTEND Family Medicine
DX: G40.909 Epilepsy, unspecified, not intractable, without status epilepticus (principal); Z87.442 Personal history of urinary calculi; Z51.81 Encounter for therapeutic drug level monitoring
CPT/HCPCS: 36415; 80053; 80183; 85025; 87040

== ENCOUNTER → 2017-03-14 | Outpatient (CLI) | payer MEDICARE, OTHER | LOC: PLAB 14:10 | PROVIDERS: ATTEND Specialist | DX: Z51.81 Encounter for therapeutic drug level monitoring (principal) | CPT/HCPCS: 36415; 80183 ==